=== PATIENT | female | born 1985 ===

== ENCOUNTER 2017-01-17 05:41 | Inpatient (IN) | payer OTHER ==
--- NOTE | 2017-01-17 07:02 | OBHP ---
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 Pt denies any VB and feels good movement. has been uncomplicated. [place]- Q 2-3, FHR- Category 1, Vtx, Cx-/-2, Assessment: IUP at 38wks SROM. Plan as per Dr Palomino: Admit to LND Monitor labor. Pelvic Type - PN: Adequate Extremities - PN: Normal Abdomen - PN: Normal Back - PN: Normal Breast - PN: Normal Lungs - PN: Normal Heart - PN: Normal Thyroid - PN: Normal Neurologic - PN: Normal HEENT - PN: Normal General - PN: Normal Presentation-Admit: Vertex FHR - Baseline A Provider: 130s Membranes, Provider: Ruptured Contraction Comments Provider: Q 2-3 Comments, ACOG Physical Exam: Abd: Soft,NT, BS- present Gestation - Est Wks by US: 38.0 Pool Provider: Positive Nitrazine Provider: Positive EGA AdmitDate IP: 38.0 Vital Signs Provider: Reviewed IP Chief Complaint: Uterine contractions; Suspected ruptured membranes; Maternal discomfort NICHD Variability Prov Fetus A: Moderate 6-25bpm NICHD Accel Fetus A IP Provider: 10X10 FHR Category Provider Fetus A: Category I NICHD Decel Fetus A IP Provider: None Dilatation, Provider: 1 Effacement, Provider: 40 Station, Provider: -2 Genitourinary Exam: Normal DTRs - PN: Normal
[2017-01-17 07:35] LABS: BASO % 0.3 % (0.0-2.0); EOS # 0.1 K/uL (0.0-0.7); EOS % 0.7 % (0.0-4.0); HEMOGLOBIN 11.2 g/dL (11.0-16.0); LYMPH # 2.4 K/uL (1.0-4.3); MEAN CELL VOLUME 86.5 fL (81.0-99.0); MEAN CORPUSCULAR HEMOGLOBIN 27.8 pg (27.0-31.0); MEAN CORPUSCULAR HGB CONC 32.1 g/dL (33.0-37.0); MEAN PLATELET VOLUME 10.7 fL (7.2-11.7); MONO # 0.7 K/uL (0.0-0.8); MONO % 7.2 % (0.0-10.0); NEUT # 7.2 K/uL (1.8-7.0); NEUT % 68.8 % (50.0-75.0); RBC 4.04 Mil/uL (3.80-5.20); RED CELL DISTRIBUTION WIDTH 15.4 % (11.5-14.5); WHITE BLOOD COUNT 10.4 K/uL (4.8-10.8)
[2017-01-17 07:40] LABS: SQUAMOUS EPITHIAL 4 /hpf (0-5); URINE BACTERIA RARE (<OCC); URINE BILIRUBIN NEGATIVE (NEGATIVE); URINE BLOOD NEGATIVE (NEGATIVE); URINE CLARITY Clear (Clear); URINE COLOR Yellow (YELLOW); URINE GLUCOSE (UA) NORMAL (Normal); URINE LEUKOCYTE ESTERASE NEG Leu/uL (Negative); URINE NITRATE NEGATIVE (NEGATIVE); URINE PROTEIN 1+ mg/dL (NEGATIVE); URINE UROBILINOGEN NORMAL mg/dL (0.2-1.0)
[2017-01-17 07:52] LABS: ALB/GLOB RATIO 0.9 (1.0-2.1); AST/SGOT 19 U/L (14-36); BLOOD UREA NITROGEN 8 mg/dL (7-17); GFR AFRICAN-AMERICAN > 60; GFR NON-AFRICAN AMERICAN > 60
[2017-01-17 07:53] LABS: ALT/SGPT 11 U/L (9-52); CALCIUM 8.8 mg/dl (8.6-10.4)
[2017-01-17] MEDS: Lactated Ringer's 1,000 ML IV SCH (08:08)
[2017-01-17] MEDS ORDERED: Bupivacaine 0.125%/FentaNYL 200 ML EPI ONE (10:57)
[2017-01-17] MEDS ORDERED: Oxytocin 30 UNIT 30 UNITS/500 ML BAG IV ONE (11:50)
--- NOTE | 2017-01-17 13:09 | OBPN ---
Datetime: 01/17/2017 13:04 Contraction Comments Provider: irregular, with couplets FHR - Baseline A Provider: 140 Gestation - Est Wks by US: 38.0 Presentation-Admit: Vertex IP Progress Note Comment: FHR tracing noted for early decels S/P epidural - no complaints of pain V.E.: as above. Pitocin at 4 mu Assessment: P0, 38 weeks, SROM, on pitocin. Category 1 tracing. Clinically stable Plan: 1) Continue present managment 2) Anticipate vaginal delivery - Dr. Palomino to be notified NICHD Accel Fetus A IP Provider: 15X15 FHR Category Provider Fetus A: Category I NICHD Variability Prov Fetus A: Moderate 6-25bpm Dilatation, Provider: 6-7 Effacement, Provider: 90 Station, Provider: 0 NICHD Decel Fetus A IP Provider: Early Datetime: 01/17/2017 06:54 Pool Provider: Positive Nitrazine Provider: Positive Membranes, Provider: Ruptured Vital Signs Provider: Reviewed
[2017-01-17] MEDS ORDERED: Oxycodone/Acetaminophen 5/325 mg Tab PO PRN ×2 (15:42)
[2017-01-17] MEDS ORDERED: Benzocaine/Menthol 20%-0.5% Topical Spray (60 ml) TOP PRN (15:42)
[2017-01-17] MEDS ORDERED: Oxytocin 30 UNIT 30 UNITS/500 ML BAG IV SCH (15:45)
--- NOTE | 2017-01-17 15:47 | OBPN ---
Datetime: 01/17/2017 15:40 IP Progress Impression: Normal progression of labor IP Informed Consent Obtain: Risks, Benefits and Alternatives Discussed IP Progress Plan: Continue present management; Anticipate Vaginal Delivery Membranes, Provider: Ruptured Amniotic Fluid Color, Provider: Clear FHR - Baseline A Provider: 145 Gestation - Est Wks by US: 38.0 Presentation-Admit: Vertex IP Progress Note Comment: pt seen and examined and reports pelic pressure, wants to push vs see abve ve see abpove a/p @ 38 wks SROM in active labor, -start pushing -cpnt crurrent mange t-anticpate Vital Signs Provider: Reviewed; Within Normal Limits FHR Category Provider Fetus A: Category I NICHD Variability Prov Fetus A: Moderate 6-25bpm Dilatation, Provider: 10 Effacement, Provider: 100 Station, Provider: 0
[2017-01-17] MEDS ORDERED: Lidocaine 2% Inj (20ml) ONE ×2 (16:35→16:55)
[2017-01-17] MEDS ORDERED: ceFAZolin IV 2 gm in Dextrose 1 GM/50 ML BAG IVPB ONE ×2 (17:31→18:28)
--- NOTE | 2017-01-17 17:35 | OBDS ---
DELIVERY PERSONNEL Delivery Doctor: Flores Buck MD Scrub Nurse: Yoli Abreu Skidder Driver: Cm Potter RN Anesthesiologist: armani MATERNAL INFORMATION Delivery Anesthesia: Epidural Medications in Delivery: pitocin 20 Estimated Blood Loss (ml): 400 Placenta Cultured: No Maternal Complications: None Provider Comments: pt ws fully dilated nad pushing, verbacl conesnt given for right mediolateral epi sitomy and vacumn delivery due to maternal exhaustion and categoy II tracing, no cervix , sutures pal pated, 2 pulls, less than 7 seconds pressure 40mmg HG, baby delivered , compound prsent right shoulde ,r vacumen released, both oral and nasal passage of baby bulb suctioned,atrumatic, spoentous deliveyr of shoulder followed by delivery of body. bumicla cord clamped and cut, baby hadned to awaiting ped iatricina. cord blood and cord gases collected and sent x 2. sponteanous delivery of intact placenta with membranes. fundus firm, goo dhemostaiss. third degree laceration from extension of right mediolt eral epistiotmy repaired with . rectal exam performed, spintcer intact. Good hemostasis, no ocmplic ated live felale infant agpar 9, 9 weight of 5lb 5 ounces ebl 400ml LABOR SUMMARY EDC: 01/31/2017 00:00 No. Babies in Womb: 1 Attempted: No Labor Anesthesia: Epidural LABOR INFORMATION Onset of Labor: 01/17/2017 09:00 Complete Dilatation: 01/17/2017 14:02 Cervical Ripening Agents: Cytotec @ (Annotations: 25mcg po) Oxytocin: Augmentation Group B Beta Strep: Negative Antibiotics # of Doses: 1 Antibiotics Time of Last Dose: 8 20 am Steroids Given: None Reason Steroids Not Administered: Not Applicable MEMBRANES Membranes Rupture Method: Spontaneous Rupture of Membranes: 01/17/2017 05:30 Length of Rupture (hrs): 11.12 Amniotic Fluid Color: Clear Amniotic Fluid Amount: Moderate Amniotic Fluid Odor: Normal STAGES OF LABOR Stage 1 hrs: 5 Stage 1 min: 2 Stage 2 hrs: 2 Stage 2 min: 35 Stage 3 hrs: 0 Stage 3 min: 13 Total Time in Labor hrs: 7 Total Time in Labor min: 50 VAGINAL DELIVERY Episiotomy: Right Mediolateral Laceration Extension: Third Degree Laceration Type: Perineal Other Laceration: surgicell insert in vagina by dr buck Laceration Repair Note: third degree with right mediolateral episiotomy repaired with 2-0 vicyl, 2-0 and 3-0 chormic Initial Vag Sponge Count: 18 Final Vag Sponge Count: 18 Initial Vag Sharps Count: 1 Final Vag Sharps Count: 1 Sponge Count Correct: Yes Sharps Count Correct: Yes Count Comment: yes BABY A INFORMATION Delivery Date/Time: 01/17/2017 16:37 Method of Delivery: Vaginal Born in Route : No : N/A Forceps: N/A Vacuum Extraction: Successful Shoulder Dystocia : No SHOULDER DYSTOCIA BABY A Infant Delivery Date/Time: 01/17/2017 16:37 PRESENTATION/POSITION BABY A Presentation: Cephalic Cephalic Presentation: Vertex Breech Presentation: N/A PLACENTA INFORMATION BABY A Placenta Delivery Time : 01/17/2017 16:50 Placenta Method of Delivery: Spontaneous Placenta Status: Delivered SCORES BABY A Heart Rate 1 min: >100 bpm Resp Effort 1 min: Good Cry Reflex Irritability 1 min: Cough or Sneeze or Pulls Away Muscle Tone 1 min: Active Motion Color 1 min: Body [place], Extremities Blue Resuscitation Effort 1 min: Tactile Stimulation SCORE 1 MIN: 9 Heart Rate 5 min: >100 bpm Resp Effort 5 min: Good Cry Reflex Irritability 5 min: Cough or Sneeze or Pulls Away Muscle Tone 5 min: Active Motion Color 5 min: Body [place], Extremities Blue SCORE 5 MIN: 9 INFORMATION BABY A Gestational Age at Delivery: 38.0 Gestational Status: Term Infant Outcome : Liveborn Condition : Stable Sex: Female IDENTIFICATION/MEDS BABY A ID Band Number: [id number] ID Band Location: Left Leg; Left Arm Sensor Applied: Yes Sensor Number: [id number] Sensor Location : Cord Clamp WEIGHT/LENGTH BABY A Birthweight (gms): 2415 Weight (lb): 5 Weight (oz): 5 Infant Length Inches: 18.00 Infant Length cms: 45.7 CORD INFORMATION BABY A Nuchal Cord : N/A Cord Blood Taken: Yes Suction: Mouth; Nose ASSESSMENT BABY A Infant Complications: None Complications Other: none Physical Findings at Delivery: Within Normal Limits Respirations: Appears Normal Vice President Of Finance/ALS Called : No Care By: dr adamson Transferred To: Remains with Mother
[2017-01-18] MEDS: ceFAZolin IV 1 gm in Dextrose 1 GM/50 ML BAG IVPB SCH ×2 (01:31→10:24)
[2017-01-18] MEDS: Lactated Ringer's 1,000 ML IV SCH (01:36)
--- NOTE | 2017-01-18 08:32 | OBPPN ---
Datetime: 01/18/2017 08:28 PP Pain Prov: Within normal limits PP Nausea Prov: Denies PP Flatus Prov: Yes PP Breasts Prov: Normal PP Heart Prov: Normal PP Lungs Prov: Normal PP Abdomen/Uterus Prov: Normal PP Lochia Prov: Normal PP Vulva/Perineum Prov: Normal PP CVA Tenderness Prov: Normal PP Extremities Prov: Normal PP Progress Prov: Normal PP Comments Phys Exam Prov: Abd: Soft, NT, BS- present. UT- Firm PP Impression Prov: Normal progression PP Plan Prov: Continue present management PP Progress Note Prov: S/P , PPD#1 Clinically Stable. Plan: Continue care.
[2017-01-18 09:18] VITALS: PULSE 80
[2017-01-18 09:21] LABS: RED CELL DISTRIBUTION WIDTH 15.2 % (11.5-14.5)
[2017-01-18 09:29] LABS: MEAN CORPUSCULAR HEMOGLOBIN 27.8 pg (27.0-31.0); MEAN CORPUSCULAR HGB CONC 32.3 g/dL (33.0-37.0); MEAN PLATELET VOLUME 10.7 fL (7.2-11.7); RBC 3.15 Mil/uL (3.80-5.20); WHITE BLOOD COUNT 15.7 K/uL (4.8-10.8)
[2017-01-18 10:03] LABS: HEMOGLOBIN 8.8 g/dL (11.0-16.0)
[2017-01-18] MEDS: Multiple Vitamins Tab PO SCH (10:21)
[2017-01-18 16:10] VITALS: BP 116/75; RESP 20; TEMP 97.5; O2SAT 96
[2017-01-19] MEDS: Multiple Vitamins Tab PO SCH (10:19)
--- NOTE | 2017-01-31 07:17 | OBDCSUM ---
Datetime: 01/19/2017 14:30 Discharge Instructions, Provider: Routine instructions given Discharge Diagnosis, Provider: Term Delivered Follow up in weeks, Provider: 6 weeks Contraception discussed, Prov: Yes Discharge Comment, Provider: precautins given Contraception after Delivery: Not Planning to Use
== END 2017-01-19 16:00 | disposition home or self-care (01) | DRG 775 ==
LOC: C.EROB 05:41 → C.4D 06:55 → C.4M 20:00
PROVIDERS: ADMIT Obstetrics & Gynecology; ATTEND Obstetrics & Gynecology
PROC: 10D07Z6 Extraction of Products of Conception, Vacuum, Via Natural or Artificial Opening (ICD-10-PCS; principal; 2017-01-17)
PROC: 0DQR0ZZ Repair Anal Sphincter, Open Approach (ICD-10-PCS; 2017-01-17)
PROC: 0W8NXZZ Division of Female Perineum, External Approach (ICD-10-PCS; 2017-01-17)
DX: O32.6XX0 Maternal care for compound presentation, not applicable or unspecified (principal); O70.20 Third degree perineal laceration during delivery, unspecified; O75.81 Maternal exhaustion complicating labor and delivery; Z37.0 Single live birth; Z3A.38 38 weeks gestation of pregnancy